=== PATIENT | male | born 1950 | race Caucasian/White ===

== ENCOUNTER → 2024-06-12 12:36 | Outpatient (REF) | payer MEDICARE, OTHER, SELFPAY | LOC: RAD 12:36 | PROVIDERS: ATTENDING PHYSICIAN Student in an Organized Health Care Education/Training Program; FAMILY PHYSICIAN Family Medicine | DX: I48.0 Paroxysmal atrial fibrillation (principal) | CPT/HCPCS: 75572; Q9967 ==

== ENCOUNTER 2024-07-18 06:08 | Inpatient (IN) | payer MEDICARE, OTHER, SELFPAY ==
[2024-07-04 14:08] LABS: % Basophils 0.6 % (0-2); % Eosinophils 3.3 % (0-6); % Immature Granulocytes 0.3 % (0-0.5); % Lymphocytes 21.7 % (20.5-51.1); % Monocytes 9.1 % (1.7-9.3); Absolute Basophils 0.1 10^3/uL (0-0.2); Absolute Eosinophils 0.3 10^3/uL (0-0.7); Absolute Lymphocytes 1.7 10^3/uL (1.2-3.4); Absolute Monocytes 0.7 10^3/uL (0.1-0.6); Absolute Neutrophils 5.1 10^3/uL (1.4-6.5); Hematocrit 48.2 % (39.0-52.0); Hemoglobin 16.2 g/dL (13.0-18.0); Mean Corp Hgb Conc. 33.6 g/dL (33.0-37.0); Mean Corpuscular Volume 92.2 fL (80.0-94.0); Mean Platelet Volume 10.7 fL (7.4-10.4); Nucleated Red Blood Cells % 0 % (-); Platelet Count 150 10^3/uL (130-400); Red Blood Cell Count 5.23 10^6/uL (4.70-6.10); Red Cell Dist. Width 13.1 % (11.5-14.5); White Blood Cell Count 7.9 10^3/uL (4.8-10.8)
[2024-07-04 14:29] LABS: PT 14.5 Sec (11.4-14.6)
[2024-07-04 15:18] LABS: ALT (SGPT) 17 U/L (0-50); AST (SGOT) 18 U/L (17-59); Albumin 4.7 g/dl (3.5-5.0); Alkaline Phosphatase 59 U/L (38-126); Blood Urea Nitrogen 17 mg/dl (9-20); Calcium 9.5 mg/dl (8.4-10.2); Carbon Dioxide 29 mmol/L (22-30); Chloride 106 mmol/L (98-107); Estimated Creatinine Clearance 84 ml/min; Glucose 139 mg/dl (70-99); Potassium 4.3 mmol/L (3.5-5.1); Sodium 145 mmol/L (135-145); Total Bilirubin 0.7 mg/dl (0.2-1.3); Total Protein 6.8 g/dl (6.3-8.2); eGFR > 60.00
[2024-07-18 09:03] LABS: ACT-LR - POC 319 Seconds (116-155)
--- NOTE | 2024-07-18 09:07 | ITS.CL.PN ---
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
Procedure
Procedure Note:
WATCHMAN LEFT ATRIAL APPENDAGE OCCLUSION REPORT
Date of Procedure: 07/18/2024
Referring: Dr. Anson Perales MD
Indication: atrial fibrillation with high bleeding risk and high stroke risk
Operators: Jared Petersen MD, PhD (interventional cardiology); Dr. Anson Taylor MD (electrophysiology); Dr. Arpit Ruiz MD (cardiac imaging)
Anesthesia: general anesthesia provided by the anesthesia staff
PROCEDURE: left atrial appendage occlusion with a 31 mm Watchman FLX
ACCESS: 14F right common femoral vein (closure: figure of eight stitch)
HEMODYNAMIC DATA: LA 10 mmHg
PROCEDURE NARRATIVE:
The patient was intubated and sedated by anesthesiology and then prepped and draped in standard sterile fashion. A MICAH probe was placed by cardiology and imaging performed demonstrating no left atrial appendage thrombus and no pericardial effusion.
Under ultrasound guidance, the right femoral vein was accessed by Dr. Taylor with an 8F sheath placed. Heparin was administered to achieve ACT>300.
The 8F sheath was exchanged over a AmpliSense RF wire for the Watchman double curve sheath which was advanced to the SVC. The Watchman sheath was then pulled back under fluoroscopic and echo guidance until an appropriate inferior and posterior position
on the septum was achieved. During brief RF application, the wire was advanced through the interatrial septum into the left atrium. The wire was placed in the left upper pulmonary vein as confirmed by fluoroscopy and MICAH. The dilator and sheath
easily tracked across the septum allowing placement of the sheath in the left atrium. Left atrial pressure was measured at 10 mmHg.
A 5F pigtail catheter was advanced through the sheath and placed in the left atrial appendage, and an appendage gram was performed demonstrating anatomy suitable for a 31 mm Watchman FLX device. The device was prepped on the back table, the pigtail
catheter removed, and the device delivered via the sheath to the left atrial appendage by Dr. Petersen. The device was deployed slowly under continuous fluoroscopic and MICAH visualization. After deployment, MICAH imaging was performed to assess PASS
criteria. The device demonstrated excellent positioning, anchor stability on tug test, appropriate sizing with 12-22% compression, and appropriate seal with no leak at 0, 45, 90, or 135 degrees. Given PASS criteria were met, the device was then
released.
The delivery system retracted back into the sheath and removed from the body. The sheath was retracted into the right atrium with MICAH demonstrating no significant R-L shunt or pericardial effusion. The ICE catheter was removed from the body. The
sheaths were removed and the venotomy closed with saflsn-da-rahed knot. Protamine 30 mg was given. The patient was extubated and tolerated the procedure well.
CONCLUSIONS
1. transseptal puncture with MICAH guidance
2. successful deployment of a 31 mm Watchman FLX device under fluoroscopic and MICAH guidance
RECOMMENDATIONS:
1. anticoagulation with Xarelto 20 mg daily for 3 months
2. repeat MICAH in 3 months
Copy to: Dr. Anson Taylor MD (auto bench mechanic); Dr. Daniel Saavedra MD (PCP)
Signed: Jared Petersen MD, PhD
--- NOTE | 2024-07-18 09:17 | WATCHMAN.MD ---
Watchman Implant
-
Watchman YVETTE occlusion device implantation:
Mr. Valencia is a 74 yrs old gentleman with high fall risk and intracranial bleed and advised to stop anticoagulation therapy is here for Watchman implantation.
Date of Procedure:
07/18/24
Indications:
Recurrent bleeding with anticoagulation therapy for stroke prevention
Pre-Operative Diagnosis:
Atrial fibrillation with bleeding
Post-Operative Diagnosis:
Atrial fibrillation with bleeding
Procedure Performed:
Left atrial appendage occlusion with Watchman implantation (31 mm Watchman FLX Pro left atrial appendage closure device)
Performing Physicians:
MICAH: Arpit Ruiz M.D.
Transseptal multicraft operator: Anson Taylor M.D. �
Implanter: Jared Petersen M.D.
Anesthesia:
See anesthesia records
Detailed Description of the Procedure:
Written informed consent was obtained from the patient after a full explanation of the risks and benefits of the procedure including the risks of sedation and anesthesia.
The patient was brought to the electrophysiology laboratory in stable condition in fasting state. Continuous electrocardiographic and hemodynamic monitoring was initiated.
The initial rhythm was atrial fibrillation.
The procedure site was meticulously prepared with surgical scrub and allowed to dry with no pooling. Sterile draping was applied to cover the procedure site. The image intensifier was draped with sterile bag and positioned over the patient. After
infusion of local anesthetic, vascular access was obtained under ultrasound guidance and sheaths were placed over guide wire as detailed below.
Sheath and Catheter Placement:
In the right femoral vein, a 16-Luxembourgish sheath was placed for Watchman placement procedure.
Sheaths:
��������������� Watchman delivery sheath
Catheters:
��������������� Watchman catheter
Trans-septal Puncture:
Heparin was initiated and infused to maintain appropriate ACT.
A VersaCross RF pigtail guidewire was advanced through the 8-Luxembourgish sheath in the right femoral vein into the superior vena cava under fluoroscopic, MICAH guidance. The 8Fr was upgraded the Watchman sheath and was advanced into the superior vena cava
over the guide wire. A transseptal VersaCross RF pigtail via Faradrive connect system was utilized to perform the trans-septal puncture. The apparatus was withdrawn until it was in contact with the fossa ovalis. The position was adjusted based on
fluoroscopy and ultrasound images from MICAH. Under fluoroscopic, hemodynamic and MICAH ultrasound guidance, left atrium was cannulated by applying the radiofrequency energy. The right atrial and left atrial pressure was monitored. A guide wire was
placed and was advanced into the left superior pulmonary vein. Both the sheath and the dilator was advanced into the left atrium. The dilator was withdrawn. Blood was aspirated from the sheath and arterial blood confirmed. The sheath was flushed.
Saline injection noted into the left atrium on MICAH. The LA pressure was recorded. The saline injection was noted in the LA on the MICAH. A curved pig tail was advanced over the guide wire into the left atrium and the wire was removed.
Left atrial appendage atriography:
The pigtail was advanced into the YVETTE and was confirmed on fluoroscopy and MICAH. The contrast was injected and the YVETTE shape was recorded in VALADEZ /Caudal view (21/21 degrees). The size of the YVETTE was again checked and confirmed reviewing the MICAH and
the fluoroscopy along with previously obtained CT scan images.
Watchman Deployment:
The Watchman delivery sheath was advanced into the YVETTE over the pigtail till the right marker was at the location of the orifice line marked on the screen. The pigtail was removed and the Watchman delivery system was advanced through the sheath into
the YVETTE till it was aligned with the outer sheath marker inside the YVETTE. The watchman sheath was clicked with the outer sheath. Once acceptable location achieved, the outer sheath was pulled back keeping the device steady at the YVETTE location till a
ball of the device was formed under fluoroscopic guidance. The whole system was advanced further into the YVETTE till adequate depth is achieved into the YVETTE.� The YVETTE occluder was deployed and expanded adequately anchoring to the YVETTE. The device was
kept anchored with stable pressure to that location for 10 seconds.
The MICAH image confirmed adequate expansion. The tug test was done that showed the device is anchored well and is not able to come out. A small shoulder at the inferior section was acceptable. The compression was 12%, 18% and 25% on the three sides.
There was no significant leak noted on the Doppler via MICAH. �The contrast injection showed no leak and excellent position.
The device was deployed by unscrewing the Watchman device and releasing from the connecting wire. The wire was pulled back into the sheath and the sheath was pulled out of the LA.
Implanted device:
WATCHMAN FLX Pro � 31mm
Procedure End
MICAH study was done again that showed no epicardial accumulation that was unchanged from earlier. A repeated images showed no change in the pericardial space. No complications noted.
Following the completion of the deployment, catheters were removed. Protamine 30 mg was given at the end of the procedure and ACT was checked repeatedly. The sheath was removed and hemostasis achieved with Figure of 8 suture and manual compression
after acceptable ACT is achieved.
Left atrial Pressure:
Mean LA pressure was 10mmHg
Estimated Blood loss:
10 cc
Specimens Removed:
None.
Implants / Devices:
None
Urine output:
None
Packs / Drains/ Tubes:
None
Instrument / Sponge Count Correct:
Yes
Complications of the Procedure:
None
Condition of Patient at Time of Transfer:
Hemodynamically stable with no neurological or vascular compromise.
Summary:
Successful implantation of the left atrial occlusion device (WATCHMAN FLX Pro� 31mm)
Post procedure Plan for anticoagulation:
Continue Xarelto 20 mg QD for 3 months with MICAH in 3 months.
In 3months, based on MICAH, will plan to discontinue Xarelto and start Plavix and ASA for 3 more months.
Following 3 months of DAPT, Plavix will be discontinued and continue ASA 81 mg indefinitely.
[2024-07-18] MEDS: COZAAR 25 MG PO (11:02)
--- NOTE | 2024-07-18 13:11 | W.DS.TRANS ---
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
-
Discharge Instructions:
Discharge Diagnosis/Procedures AFib, s/p Watchman device implant
Diet Low Cholesterol
Driving Restrictions No driving for 24 hours
Others Tests A Follow Up MICAH has been scheduled for you at
[facility] with Dr. Monteiro on
2024. You will receive instructions from the
office and a call the day prior to procedure
with arrival time.
Instructions:
Stand-Alone Forms: DC Instructions- Cath/EP Lab
Changes to Home Medications: No
Discharge Medications:
DC Medications w/original date entered in [facility]
Cataplex B 1 tab PO DAILY 06/29/24
Olprina Epa-Dha 1 cap PO BID 06/29/24
Sight Care 1 tab PO DAILY 06/29/24
Thymex 1 tab PO DAILY 06/29/24
Thymex 2 tab PO HS 06/29/24
Tuna [place] 3 Oil 1 cap PO DAILY 06/29/24
n-qaolebz-W5-J-xcd-dtjks-echin capsule 1 cap PO BID 06/29/24
bergamot extract 500 mg capsule (Starke Bergamot) 500 mg PO DAILY 06/29/24
levetiracetam 750 mg tablet (Keppra) 1,500 mg PO Q12H 06/29/24
losartan 25 mg tablet 25 mg PO DAILY 06/29/24
metoprolol succinate 50 mg tablet,extended release 24 hr 75 mg PO BID 06/29/24
red yeast rice 600 mg capsule 1,200 mg PO DAILY 06/29/24
rivaroxaban 20 mg tablet (Xarelto) 20 mg PO QPM 06/29/24
saw palm 160 mg-vit E 100 unit-selen 100 mnw-opmp-qdbcvl-pygeum tablet (Prostate Health) 1 tab PO DAILY 06/29/24
tamsulosin 0.4 mg capsule 0.8 mg PO HS 06/29/24
vitamin D3 25 mcg (1,000 unit)-vit K2 90 mcg disintegrating tablet 1 tab PO DAILY 06/29/24
Home Medication Changes
Pending Results: No
--- NOTE | 2024-07-18 13:52 | W.PN.UPDATE ---
Update Note
Progress Note Update
Pt seen post Watchman device implant. Right groin site without ht/bleeding, non tender. OOB ambulating, urinating without difficulty. Post EKG AFib w/controlled rates 70s. Resume xarelto tonight at usual time. Followup MICAH study scheduled. Followup
at [facility] as scheduled and with Dr. Alvarez thereafter. Home today if groin site/tele remain stable.
--- NOTE | 2024-07-19 12:17 | W.PN.UPDATE ---
Update Note
Progress Note Update
Nursing call back today post procedure- pt states he is getting a temporary crown removed today with a permanent crown placed. He is not able to come off anticoagulant at this time. He also will need prophylactic antibiotic prior to procedure,
related to new watchman device, for approx 6 months. I called the patient and spoke with his . There are several concurrent issues related to antibiotics, anticoagulation, and other medications that could impact treatment at this time, including
PCN allergy. Explained the necessity of treatment and recommended holding off on the crown until he discussed with his regular director of graduate medical education and could confer with the dentist. Pt and in agreement and will call primary director of graduate medical education (Dr. Alvarez)
and dentist to reschedule and plan appropriately.
== END 2024-07-18 14:45 | disposition home or self-care (01) | DRG 274 ==
LOC: CATH-IN 06:08
PROVIDERS: Internal Medicine Cardiovascular Disease; ADMITTING PHYSICIAN Student in an Organized Health Care Education/Training Program; FAMILY PHYSICIAN Family Medicine
PROC: B24BZZ4 Ultrasonography of Heart with Aorta, Transesophageal (ICD-10-PCS; 2024-07-18)
PROC: 02L73DK Occlusion of Left Atrial Appendage with Intraluminal Device, Percutaneous Approach (ICD-10-PCS; 2024-07-18)
DX: I48.0 Paroxysmal atrial fibrillation (principal); Z00.6 Encounter for examination for normal comparison and control in clinical research program; R56.9 Unspecified convulsions; I10 Essential (primary) hypertension; E78.5 Hyperlipidemia, unspecified; I25.10 Atherosclerotic heart disease of native coronary artery without angina pectoris; K21.9 Gastro-esophageal reflux disease without esophagitis; R26.2 Difficulty in walking, not elsewhere classified; Z79.82 Long term (current) use of aspirin; Z79.01 Long term (current) use of anticoagulants; Z98.2 Presence of cerebrospinal fluid drainage device
CPT/HCPCS: 33340; 36415; 80053; 85025; 85347; 85610; 86850; 86900; 86901; 93005; 93355; C1894; Q9967

== ENCOUNTER → 2024-10-05 12:56 | Outpatient (REF) | payer MEDICARE, OTHER, SELFPAY | LOC: SDSPAT 12:56 | PROVIDERS: ATTENDING PHYSICIAN Internal Medicine; FAMILY PHYSICIAN Family Medicine; OTHER PHYSICIAN Internal Medicine Cardiovascular Disease | DX: I48.19 Other persistent atrial fibrillation (principal) | CPT/HCPCS: 93005 ==

== ENCOUNTER 2024-10-18 07:59 | Day surgery (SDC) | payer MEDICARE, OTHER, SELFPAY ==
[2024-10-05 13:37] VITALS: BMI 24.5
== END 2024-10-18 11:00 | disposition home or self-care (01) ==
LOC: CATH 07:59
PROVIDERS: ATTENDING PHYSICIAN Internal Medicine
DX: I48.0 Paroxysmal atrial fibrillation (principal); G91.2 (Idiopathic) normal pressure hydrocephalus; R26.2 Difficulty in walking, not elsewhere classified; I10 Essential (primary) hypertension; I25.10 Atherosclerotic heart disease of native coronary artery without angina pectoris; N40.0 Benign prostatic hyperplasia without lower urinary tract symptoms; E03.9 Hypothyroidism, unspecified; R73.01 Impaired fasting glucose; E78.5 Hyperlipidemia, unspecified; J84.10 Pulmonary fibrosis, unspecified; G40.802 Other epilepsy, not intractable, without status epilepticus; Z79.82 Long term (current) use of aspirin; Z79.899 Other long term (current) drug therapy; Z79.01 Long term (current) use of anticoagulants; Z88.0 Allergy status to penicillin; I08.3 Combined rheumatic disorders of mitral, aortic and tricuspid valves
CPT/HCPCS: 93312; 93320; 93325